=== PATIENT | male | born 1940 | race Caucasian/White ===

== ENCOUNTER → 2016-12-14 | Outpatient (CLI) | payer MEDICARE ==
[~2016-12-14] MED LIST: ACET-2723 PO; ASPI325T PO; BUDE10.2 PO; CLOP75TA PO; FERR325T6 PO; FURO-154 PO; MECO10002 PO; NITR0.4T SL; PANT20TA13 PO
[2016-12-14 11:01] LABS: BASOPHILS % (AUTO) 0.4 % (0-2); EOSINOPHILS # (AUTO) 0.2 T/MM3 (0-0.5); EOSINOPHILS % (AUTO) 2.5 % (0-4); HCT - HEMATOCRIT 44.9 % (41-53); HGB - HEMOGLOBIN 15.3 GM/DL (13.5-17.5); IMMATURE GRANULOCYTE # (AUTO) 0.01 T/MM3 (0.00-0.03); IMMATURE GRANULOCYTE % (AUTO) 0.1 % (0.0-0.5); LYMPHOCYTES # (AUTO) 1.8 T/MM3 (1-4.8); LYMPHOCYTES % (AUTO) 24.4 % (23-45); MEAN CORPUSCULAR HGB 32.4 UUG (26-34); MEAN CORPUSCULAR HGB CONC(MCHC 34.1 GM/DL (31-37); MEAN CORPUSCULAR VOLUME 95.1 UM3 (80-100); MEAN PLATELET VOLUME 9.9 UM3 (9.4-12.4); MONOCYTES # (AUTO) 0.6 T/MM3 (0-0.8); MONOCYTES % (AUTO) 7.7 % (0-9.0); NEUTROPHILS #(AUTO)-ABSOLUTE 4.7 T/MM3 (1.8-7.7); NEUTROPHILS % (AUTO) 64.9 % (33-66); RED BLOOD COUNT 4.72 M/MM3 (4.50-5.90); WBC - WHITE BLOOD COUNT 7.2 T/MM3 (4.5-11.0)
[2016-12-14 11:11] LABS: ALBUMIN/GLOBULIN RATIO 1.4 RATIO (1.1-2.2); ALKALINE PHOSPHATASE 132 U/L (38-126); ALT (SGPT) 41 U/L (21-72); ANION GAP 13 MEQ/L (5-15); AST (SGOT) 20 U/L (17-59); BUN/CREATININE RATIO 15 RATIO (6-26); CALCIUM 9.3 MG/DL (8.4-10.2); CHLORIDE 107 MEQ/L (98-107); CO2 - CARBON DIOXIDE 28 MEQ/L (22-30); CREATININE 1.3 MG/DL (0.8-1.5); GLOMERULAR FILTRATION RATE 53; GLUCOSE 113 MG/DL (75-110); POTASSIUM 4.5 MEQ/L (3.6-5); SODIUM 148 MEQ/L (134-144); TOTAL PROTEIN 6.9 G/DL (6.3-8.2)
[2016-12-14 12:14] LABS: THYROID STIM HORMONE-TSH 0.93 MIU/L (0.47-4.68)
[2016-12-15 00:57] LABS: VLDL CHOLESTEROL 16.6 MG/DL (0-28)
[2016-12-15 10:49] LABS: LDL CHOLESTEROL,CALCULATED 108.4 (66-159); RISK FACTOR 4.5 RATIO (0-5.0)
== END ==
LOC: LAB 10:27
PROVIDERS: ATTEND Internal Medicine
DX: Z12.5 Encounter for screening for malignant neoplasm of prostate (principal); Z13.29 Encounter for screening for other suspected endocrine disorder; Z13.6 Encounter for screening for cardiovascular disorders; D64.9 Anemia, unspecified; R06.02 Shortness of breath
CPT/HCPCS: 36415; 80053; 80061; 84443; 85025; G0103

== ENCOUNTER → 2017-11-06 13:15 | Observation (INO) ==
--- NOTE | 2017-11-05 16:16 | History & Physical Report ---
History of Present Illness Date: 11/05/17 Chief complaint: bilateral DVT HPI: Miguel Castillo is a very pleasant 77-year-old male patient of Dr. Holland. He underwent an elective incisional ventral hernia repair x 4 on 10/27/[address] Neff at [facility]. He reports that his surgery was uneventful and was discharged home on 11/01/17. Since returning home, he states that his abdominal incision and pain are well controlled. He admits to not having much of an appetite but has been having regular bowel movements with the aid of colace and miralax daily. He reports that last evening, 11/04/17, he started to have bilateral lower extremity swelling with increasing pain and aching. He was seen by Dr. Neff this morning and Doppler ultra sound was obtained which revealed extensive occlusive and nearly occlusive DVTs of his lower extremities bilaterally. He admits to a history of DVT with subsequent PE in 12/2013 at which time he was started on Xeralto. In January 2014, he was found to have a colon mass which was later determined to be malignant and underwent IVC filter placement on 01/26/14 in anticipation of the need to hold his anticoagulation secondary to upcoming surgeries. He resumed his Xeralto following his surgeries , but subsequently had a "reaction" which required him to be changed to Eliquis. He is uncertain of the details of the reaction. Prior medical records also indicated a possible reaction to Pradaxa which is why he ultimately was started on Xeralto. He denies taking any anticoagulates in the past few years. Due to his bilateral lower extremity DVTs, Dr. Espinosa was consulted and he was accepted into observation status for further evaluation and initiation of anticoagulation therapy. In addition to his history of PE and DVTs, he also has a significant cardiac history for which he follows with Dr. Villavicencio. He has had multiple heart catheterizations with stent placement in the past. He also has a reported history of a-fib, hypertension, hyperlipidemia, COPD and GERD. He currently follows with Dr. Hudson for prostate cancer which was diagnosed in March 2017. He denies any recent fevers, chill, cough, congestion, chest pain, shortness of breath, nausea, vomiting or dysuria. Review of Systems All systems PM: 10-point ROS was reviewed, no additional remarkable complaints except - Constitutional Constitutional: Absent: chills, fatigue, fever(s), malaise, weakness - EENMT Eyes: Absent: diplopia, loss of vision, photophobia Ears: Absent: ear pain Balance: Absent: vertigo, falling to one side Nose: Absent: nosebleeds Mouth/Throat: Absent: sore throat, changes in swallowing - Cardiovascular Cardiovascular: Present: dyspnea on exertion (chronic), edema. Absent: chest pain, palpitations, syncope, orthopnea Rhythm: Present: regular rhythm Vascular: Present: pedal edema, varicosities. Absent: pallor of an extermity - Respiratory Respiratory: Present: dyspnea on exertion (chronic). Absent: cough, dyspnea, hemoptysis, wheezing, excessive phlegm production - Gastrointestinal Gastrointestinal: Present: abdominal pain (secondary to recent surgery), constipation. Absent: diarrhea, hematochezia, melena, nausea, vomiting - Genitourinary Genitourinary: Absent: dysuria, flank pain, hematuria - Musculoskeletal Musculoskeletal: Absent: back pain, deformity Musculoskeletal Comments: bilateral lower extremity pain and swelling. - Integumentary/Breasts Integumentary: Absent: rash Integumentary Comments: Shanna intact to surgical incision to midline abdomen. - Neurological Neurological: Absent: confusion, convulsions, dizziness, headache(s), weakness - Psychiatric Psychiatric: Present: anxiety. Absent: depression - Endocrine Endocrine: Absent: heat intolerance, palpitations - Hematologic/Lymphatic Hematologic/Lymphatic: Absent: easy bruising - Allergic/Immunologic Allergic/Immunologic: Absent: seasonal rhinorrhea Past Medical History Patient Stated Medical History CAD with occasional angina - follows with Dr. Villavicencio. Hypertension. Hyperlipidemia. A-fib. COPD. Asthma. GERD. Prostate cancer. - Diagnosed 04/05/2017 with transrectal biopsy by Dr. Constantin Hudson. History of PE and DVT. - Spent 1 week in hospital in 2013 - treated with xarelto. IVC filter in placed 01/26/2014. History of colon cancer. - Oncologist: Dr. Jin - Invasive moderately differentiated adenocarcinoma removed with polypectomies. - Sigmoid resection that showed no residual carcinoma but involvement of 08/27 lymph nodes. 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 Osteoarthritis. Cataracts. Hard of hearing. History of anemia requiring blood transfusion. Surgical History: * Incisional ventral hernia repair x 4 - 10/27/[address] Neff at [facility]. * Transrectal ultrasound guided biopsy of the prostate - by Dr. Matt Hudson at [facility]. Pathology revealed adenocarcinoma of the right prostate. * Colonoscopy with polypectomies - 07/17/[address] Avery at [facility] in [place], [place]. Endoscopy apparently showed 5 polyps with 2 in the ascending colon, 1 splenic flexure, and 2 descending colon. Pathology revealed all of his polyps were tubular adenomas with minimal to low grade dysplasia. * Laparoscopic lysis of intra-abdominal adhesions and laparoscopic appendectomy - 07/21/[address] Duque at [facility] in [place], [place]. * Open sigmoid colon resection with open mobilization of the splenic felxure and intraoperative colonoscopy - by Dr. Neff and Dr. Duque at [facility] in [place], [place]. Pathology revealed involvement of 1/12 LNs but no residual carcinoma. * Colonoscopy with multiple polypectomies - 01/24/[address] Avery at [facility] in [place], [place]. Endoscopy showed over 20 polyps throughout his colon. He had a group of 8 tubulovillous adenomas at 35 cm. These included 3 polyps that were invaded by invasive, moderately differentiated colonic adenocarcinoma (grade 2). The margins were indeterminate. Margins were also indeterminate of an additional tubulovillous adenoma with moderately differentiated colonic adenocarcinoma (grade 2) that was located at 40 cm. He had tubulovillous adenoma with focal high-grade dysplasia in the rectum and 2 other tubulovillous adenomas in the rectum that included moderate dysplasia. There were tubular adenomas with low-grade dysplasia located at the hepatic flexure, 5 polyps in the transverse colon, and 2 polyps at 45 cm. * Heart catheterization with stent placement x 2 - 02/05/15 and 03/12/[address] Villavicencio. * IVC filter placement - 01/26/[address] Villavicencio after initial DVT/PE on 12/26/13 and in anticipation of future surgery for colon cancer which would require holding anticoagulation for a period of time. * Appendectomy - 07/21/[address] Duque. * Vasectomy - 1967. Family History Updates: Father - , at 93, Pancreatic cancer. Paternal Aunt - Abdominal malignancy. Maternal Uncle - Leukemia. Maternal Uncle - Carcinoma of prostate. Maternal Uncle - Carcinoma of prostate. Paternal Uncle - Carcinoma of prostate. Paternal Uncle - Cancer of lung. Paternal Uncle - Cancer of lung. - Social History Smoking status: Former smoker (quit 2013) Packs-years: 60 Substance use type: does not use Alcohol intake frequency: does not drink Housing: house Household members: spouse Current occupational status: retired Does patient use chewing tobacco?: No Current residence: Apartment/Private Home Social history: PCP - Dr. Holland. Cardio - Dr. Villavicencio. Surg - Dr. Neff. Uro - Dr. Hudson. Onc - Dr. Jin. Medications Home Medications Medication Instructions Recorded Confirmed Type Nitroglycerin [Nitrostat] 0.4 mg SL Q5MIN PRN #25 tab 02/06/15 11/05/17 Rx Mecobalamin [B-12] 1 tab PO DAILY #0 03/12/15 11/05/17 History Pantoprazole Sodium 1 tab PO DAILY #0 03/12/15 11/05/17 History Albuterol HFA Inhaler [Ventolin 2 puff ORAL INH PRN PRN 04/05/17 11/05/17 History Hfa 90 mcg/actuation] Calcium Carbonate/Vitamin D3 1 tab PO DAILY 04/05/17 11/05/17 History [Calcium 600 + Vit D Tablet] Docusate Sodium [Colace] 1 cap PO DAILY 04/05/17 11/05/17 History Fluticasone/Salmeterol 250/50 1 puff INH BID 04/05/17 11/05/17 History [Advair 250-50 Diskus] Acetaminophen [Tylenol] 1 - 2 tab PO Q6H PRN 10/26/17 11/05/17 History Aspirin 1 tab PO DAILY 10/26/17 11/05/17 History Furosemide [Lasix 20 mg Tab] 1 tab PO DAILY 10/26/17 11/05/17 History Hydrocodone/APAP 5/325 [[place] 1 - 2 tab PO Q4H PRN #40 tab 10/28/17 11/05/17 Rx 5/325] Allergies Allergy/AdvReac Type Severity Reaction Status Date / Time amoxicillin AdvReac Unknown DIARRHEA Verified 11/05/17 16:45 escitalopram [From Lexapro] AdvReac Unknown Fatigued Verified 11/05/17 16:45 thiopental AdvReac Unknown DIDN'T Verified 11/05/17 16:45 WAKE UP FOR 3 DAYS tiotropium AdvReac Unknown Dizziness Verified 11/05/17 16:45 Exam Comments: Patient is very anxious on exam during IV placement. present at bedside. - Constitutional Present: mild distress, well nourished, well developed, cooperative - Routine HEENT Exam Head: Present: normocephalic, atraumatic Eye: Present: PERRL. Absent: conjunctival icterus ENT: Present: mucous membranes moist - Routine Neck Exam Present: supple, full ROM, trachea midline - Routine Chest/Breast/Axilla Exam Chest wall: Absent: tenderness, pacemaker - Routine Respiratory Exam Present: CTA bilaterally. Absent: accessory muscle use Comments: Patient hyperventilating on exam in anticipation of IV placement. Breathing slows with distractions on exam. No cough or conversational dyspnea. - Routine Cardiovascular Exam Present: RRR, S1, S2 - Routine Abdominal Exam Present: soft, normoactive bowel sounds, tenderness. Absent: rebound Comments: midline surgical incision with shanna intact; no discharge, redness or bleeding. - Routine Extremities Exam Present: edema, pulses intact, calf tenderness Comments: bilateral lower extremity swelling with tenderness; + Zafar's sign. - Routine Back/Spine/Pelvis Exam Back/Spine: Present: full ROM. Absent: vertebral tenderness - Routine Skin Exam Present: dry, warm. Absent: jaundice Comments: Afebrile. - Routine Neurological Exam Present: alert, oriented X3, CN II-XII intact, moving all extremities, hearing grossly intact, normal speech - Routine Psychiatric Exam Present: cooperative, anxious Results - Labs CBC & Chem 7: 11/05/17 17:28 11/05/17 17:28 Assessment and Plan (1) Acute deep vein thrombosis (DVT) of both lower extremities Current visit: Yes Status: Acute Assessment and Plan: Assessment: Bilateral lower extremity DVTs, acute, present on admission. S/P incisional ventral hernia repair x 4 - 10/27/17, Dr. Neff. CAD with occasional angina - follows with Dr. Villavicencio. Hypertension. Hyperlipidemia. A-fib. COPD. Asthma. GERD. Prostate cancer - diagnosed 04/05/2017 with transrectal biopsy by Dr. Constantin Hudson. History of PE and DVT - 2013; treated with xarelto. IVC filter in placed 2013. History of colon cancer - Oncologist: Dr. Jin Osteoarthritis. Hard of hearing. History of anemia requiring blood transfusion. Plan - 11/05/17: Admit to observation status under the care of Dr. Espinosa. Doppler obtained as outpatient revealed bilateral lower extremity DVT. Will obtain CBC and CMP upon admission as well as PT/INR and PTT - results pending at time of admission. Prior history of DVT and PE with IVC filter placed 2013. Previous treatment with Pradaxa and Xeralto with reported reactions. Eliquis taken previously without reaction. Initiate Eliquis for treatment of DVT. Given history of A-fib, monitor closely on telemetry. Significant anxiety on admission - ativan 0.25 Q4H PRN. Will continue home medications. Miralax daily due to recent hernia surgery. [place] to be removed on 11/09/[address] Neff. Upon discharge, patient's care will be returned to his PCP, Dr. Holland. DVT Prophylaxis: Eliquis GI Prophylaxis: Protonix Resuscitation Status: Full Code - Time spent with patient Time with patient PN: 70 minutes - Physician Narrative Physician: María Espinosa MD Narrative: Date: 11/05/17 Time: 1610 I have independently evaluated and examined this patient. I reviewed the chart, the patient's history, and the SHOE TRIMMER/PA's documented findings as above. We discussed and formulated the assessment and plan as above with additions as below: Miguel describes increasing swelling in his legs starting 2 days ago and that he was unable to bend his legs yesterday. His reports his legs were purplish. He has prior history of DVT/PE prior to diagnosis of colon cancer in 2013 ( treated surgically) and was recently diagnosed with prostate cancer. Patient acknowledges minimal activity since hernia surgery 9 days ago and virtually no activity in the past couple of days. He has occasional dyspnea which is baseline for him and unchanged in recent days. He denies pleuritic pain. Examination reveals respirations to be nonlabored and lungs clear anteriorly. Abdomen is benign, incision healing well Extremities have +2 edema bilaterally extending to the thighs. Venous Doppler reviewed-extensive clot bilaterally from the common femorals through the popliteals. Findings discussed with Dr. Neff; old records reviewed. Anticoagulation initiated with Eliquis; options reviewed as patient is concerned about cost but he is not interested in using warfarin. Can have case management clarify if alternate NOAC is more compatible with patient's insurance tomorrow. Due to proximal nature of clots will screen pelvis to exclude extension into the vena cava extending to IVC filter although recent surgery would preclude lytic therapy. Hospital Course Summary Disclaimer: The visit summary below is not to be considered part of the above Progress Note. Hospital Course: Plan - 11/05/17: Admit to observation status under the care of Dr. Espinosa. Doppler obtained as outpatient revealed bilateral lower extremity DVT. Will obtain CBC and CMP upon admission as well as PT/INR and PTT - results pending at time of admission. Prior history of DVT and PE with IVC filter placed 2013. Previous treatment with Pradaxa and Xeralto with reported reactions. Eliquis taken previously without reaction. Initiate Eliquis for treatment of DVT. Given history of A-fib, monitor closely on telemetry. Significant anxiety on admission - ativan 0.25 Q4H PRN. Will continue home medications. Miralax daily due to recent hernia surgery. [place] to be removed on 11/09/[address] Neff. Upon discharge, patient's care will be returned to his PCP, Dr. Holland.
[2017-11-05 16:22] VITALS: BMI 27.5
[2017-11-05] MEDS: BUDESONIDE INH.SOLN 0.5mg/2ml NEB AEROSOL SCH (18:24)
[2017-11-05] MEDS: ALBUTEROL/IPRATROPIUM 2.5mg-0.5mg/3ml NEB AEROSOL SCH (20:22)
[2017-11-05] MEDS: APIXABAN 5 MG TABLET PO SCH (20:52)
[2017-11-05] MEDS: HYDROCODONE/APAP 5mg/325mg TABLET PO PRN (20:53)
[2017-11-06] MEDS: HYDROCODONE/APAP 5mg/325mg TABLET PO PRN ×3 (04:16→13:05)
[2017-11-06] MEDS: ALBUTEROL/IPRATROPIUM 2.5mg-0.5mg/3ml NEB AEROSOL SCH ×2 (06:25→10:26)
[2017-11-06] MEDS: BUDESONIDE INH.SOLN 0.5mg/2ml NEB AEROSOL SCH (06:25)
[2017-11-06 09:42] VITALS: BP 129/61; PULSE 65; TEMP 97.7
[2017-11-06] MEDS: APIXABAN 5 MG TABLET PO SCH (10:15)
[2017-11-06 10:29] VITALS: RESP 18; O2SAT 98
--- NOTE | 2017-11-06 12:10 | Discharge Summary ---
Discharge Information Date of admission: 11/05/17 16:03 Anticipated date of discharge: 11/06/17 Attending Physician: María Espinosa MD Primary care physician: Joselyn Holland MD - Discharge Diagnosis (1) Acute deep vein thrombosis (DVT) of both lower extremities Status: Acute Bilateral lower extremity DVTs, acute, present on admission. S/P incisional ventral hernia repair x 4 - 10/27/17, Dr. Neff. CAD with occasional angina - follows with Dr. Villavicencio. Hypertension. Hyperlipidemia. A-fib. COPD. Asthma. GERD. Prostate cancer - diagnosed 04/05/2017 with transrectal biopsy by Dr. Constantin Hudson. History of PE and DVT - 2013; treated with xarelto. IVC filter in placed 2013. History of colon cancer - Oncologist: Dr. Annabel Temple. Hard of hearing. History of anemia requiring blood transfusion. - Laboratory Labs: 11/06/17 04:06 11/06/17 04:06 - Radiology Radiology: CT pelvis w/o contrast - pending radiology read at discharge. No visualized extensive clot in IVC per my read History of Present Illness HPI: Miguel Castillo is a very pleasant 77-year-old male patient of Dr. Holland. He underwent an elective incisional ventral hernia repair x 4 on 10/27/[address] Neff at [facility] [place]. He reports that his surgery was uneventful and was discharged home on 11/01/17. Since returning home, he states that his abdominal incision and pain are well controlled. He admits to not having much of an appetite but has been having regular bowel movements with the aid of colace and miralax daily. He reports that last evening, 11/04/17, he started to have bilateral lower extremity swelling with increasing pain and aching. He was seen by Dr. Neff this morning and Doppler ultra sound was obtained which revealed extensive occlusive and nearly occlusive DVTs of his lower extremities bilaterally. He admits to a history of DVT with subsequent PE in 12/2013 at which time he was started on Xeralto. In January 2014, he was found to have a colon mass which was later determined to be malignant and underwent IVC filter placement on 01/26/14 in anticipation of the need to hold his anticoagulation secondary to upcoming surgeries. He resumed his Xeralto following his surgeries , but subsequently had a "reaction" which required him to be changed to Eliquis. He is uncertain of the details of the reaction. Prior medical records also indicated a possible reaction to Pradaxa which is why he ultimately was started on Xeralto. He denies taking any anticoagulates in the past few years. Due to his bilateral lower extremity DVTs, Dr. Espinosa was consulted and he was accepted into observation status for further evaluation and initiation of anticoagulation therapy. In addition to his history of PE and DVTs, he also has a significant cardiac history for which he follows with Dr. Villavicencio. He has had multiple heart catheterizations with stent placement in the past. He also has a reported history of a-fib, hypertension, hyperlipidemia, COPD and GERD. He currently follows with Dr. Hudson for prostate cancer which was diagnosed in March 2017. He denies any recent fevers, chill, cough, congestion, chest pain, shortness of breath, nausea, vomiting or dysuria. Objective Vital signs: Temperature 97.7 F 11/06/17 07:00 Pulse Rate 65 11/06/17 07:00 Respiratory Rate 18 11/06/17 10:27 Blood Pressure 129/61 11/06/17 07:00 Pulse Oximetry 98 11/06/17 10:27 Rhythm: Normal Sinus Rhythm Height/Weight/BMI: Height 5 ft 8 in Weight 82.2 kg Body Mass Index 27.5 - Constitutional Present: no acute distress - Routine HEENT Exam Head: Present: normocephalic, atraumatic Eye: Present: EOMI, PERRL ENT: Present: mucous membranes moist - Routine Respiratory Exam Present: CTA bilaterally - Routine Cardiovascular Exam Present: RRR - Routine Abdominal Exam Present: soft, non distended, non tender - Routine Extremities Exam Present: edema Comments: mild bilateral LE edema - Routine Musculoskeletal Exam Musculoskeletal: Present: no clubbing or cyanosis - Routine Skin Exam Comments: surgical incision of abdomen clean and dry with shanna intact - Routine Neurological Exam Present: alert, oriented X3, CN II-XII intact, moving all extremities - Routine Psychiatric Exam Present: normal affect Hospital Course This is a general summary of the patient's hospital course. For more details refer to the complete medical record. Patient was admitted to observation status as doppler revealed as outpatient revealed bilateral lower extremity DVT. History was obtained of prior DVT and PE with IVC filter placed 2013. Previous treatment with Pradaxa and Xeralto with reported reactions. Eliquis taken previously without reaction. Therefore, eliquis was initiated and tolerated well Given history of A-fib, monitored closely on telemetry. Significant anxiety on admission - ativan 0.25 Q4H PRN. Home medications were continued Miralax daily due to recent hernia surgery. [place] to be removed on 11/09/[address] Neff. Upon discharge, patient's care will be returned to his PCP, Dr. Holland. Hospital course: Plan - 11/05/17: Admit to observation status under the care of Dr. Espinosa. Doppler obtained as outpatient revealed bilateral lower extremity DVT. Will obtain CBC and CMP upon admission as well as PT/INR and PTT - results pending at time of admission. Prior history of DVT and PE with IVC filter placed 2013. Previous treatment with Pradaxa and Xeralto with reported reactions. Eliquis taken previously without reaction. Initiate Eliquis for treatment of DVT. Given history of A-fib, monitor closely on telemetry. Significant anxiety on admission - ativan 0.25 Q4H PRN. Will continue home medications. Miralax daily due to recent hernia surgery. [place] to be removed on 11/09/[address] Neff. Upon discharge, patient's care will be returned to his PCP, Dr. Holland. Time spent with patient: 25 - 35 minutes Resuscitation Status: Full Code Discharge Plan - Discharge Disposition Discharge Date: 11/06/17 Disposition: Discharged Home, Self-Care *Condition: Stable Reason For Visit (Visit label in EMR): bilateral DVT - Discharge Medications *Discharge Medications: New Apixaban [Eliquis] 10 mg PO BID tab Continue Pantoprazole Sodium 1 tab PO DAILY #0 Calcium Carbonate/Vitamin D3 [Calcium 600 + Vit D Tablet] 1 tab PO DAILY Furosemide [Lasix 20 mg Tab] 1 tab PO DAILY Aspirin 1 tab PO DAILY Acetaminophen [Tylenol] 1 - 2 tab PO Q6H PRN PRN Reason: Pain Nitroglycerin [Nitrostat] 0.4 mg SL Q5MIN PRN #25 tab PRN Reason: ANG Mecobalamin [B-12] 1 tab PO DAILY #0 Fluticasone/Salmeterol 250/50 [Advair 250-50 Diskus] 1 puff INH BID Docusate Sodium [Colace] 1 cap PO DAILY Albuterol HFA Inhaler [Ventolin Hfa 90 mcg/actuation] 2 puff ORAL INH PRN PRN PRN Reason: Shortness Of Air/Wheezing Hydrocodone/APAP 5/325 [[place] 5/325] 1 - 2 tab PO Q4H PRN #40 tab PRN Reason: Pain - Discharge Packet/Instructions *Diet: heart healthy *Activity: as tolerated *Pain Management/Treatment: home norco, elevation of leg *Wound Care: n/a *Expected Signs/Symptoms: leg swelling/pain *Notify Physician if: increased shortness of air or worsening leg symtoms. Any sign of bleeding. *During Business Hours Contact: PCP *After Business Hours Contact: Emergency Room *Pending Lab/Results: No Pending Lab - Referrals/Follow Up *Referrals/Follow Up: Matt Hudson MD [Physician] - Joselyn Holland MD [Family Provider] - 1 Week (as planned) - Patient Handouts - Dismissal Complete Discharge Instructions are:: Complete Physician Narrative - Narrative Attestation Narrative: Date: 11/06/17 Time: 3106
[~2017-11-06 13:15] MED LIST changes: -ACET-2723 PO; +ACETAMINOPHEN 650 MG/20.3 ML SOLUTION PO PRN; +ALBUTEROL 2.5mg/3ml (0.083%) NEB AEROSOL PRN; -ASPI325T PO; +ASPIRIN 325 MG TABLET PO SCH; -BUDE10.2 PO; +CALCIUM 600 + VIT D 400 TABLET PO SCH; -CLOP75TA PO; +DOCUSATE SODIUM 100 MG CAPSULE PO SCH; -FERR325T6 PO; -FURO-154 PO; +FUROSEMIDE 20 MG TABLET PO SCH; +IOHEXOL 300mg/ml 100ml INJECTION ONE; -MECO10002 PO; +MECOBALAMIN PO SCH; -NITR0.4T SL; +NITROGLYCERIN 0.4 MG SUBLINGUAL TABLET SL PRN; +ONDANSETRON 4 MG/2 ML INJECTION IVP PRN; -PANT20TA13 PO; +PANTOPRAZOLE 20 MG TABLET PO SCH; +SALINE FLUSH 10ml SYRINGE ONE
--- NOTE | 2017-11-07 09:58 | CT Scan Report ---
Indication: DVTs, ? Vena cava extension PROCEDURE: CT pelvis w con: Encounter: Initial Comparison: Venous Doppler dated November 05, 2017 Technique: Axial CT images were performed through the pelvis after the administration of intravenous contrast. Coronal and sagittal two-dimensional reformats. Automated Exposure Control and Iterative Reconstruction dose reducing techniques were utilized. Contrast: Omnipaque 300 96 mL Findings: The visualized portions of the liver are unremarkable. Fluid and gas in the subcutaneous tissues of the ventral abdomen near a surgical staple line. Recommend correlation with patient's recent abdominal surgical history. Left lower pole renal cyst. IVC filter noted. Contrast opacification of the systemic veins is poor. The visualized veins of the pelvis appear somewhat expanded with surrounding inflammatory change. The bladder is normal. No evidence of bowel obstruction. Small benign left adrenal adenoma. Impression: Limited visualization of the systemic veins due to phase of contrast. Dilatation of the veins with surrounding inflammatory change raises concern for thrombosis particularly given the findings of venous Doppler study. Conventional venogram may be required for better evaluation. There is a preliminary report by [employer]. .
== END | disposition home or self-care (01) ==
LOC: MED
PROVIDERS: ADMIT Internal Medicine; ATTEND Internal Medicine